=== PATIENT | female | born 1940 | race Caucasian/White ===

== ENCOUNTER 2023-01-24 11:50 | Inpatient (IN) | payer MEDICARE, OTHER ==
[~2023-01-24] VITALS: Ht 160 cm; Wt 71.3 kg
[2023-01-24] MEDS ORDERED: MORPHINE SULFATE INJ 2 MG/ML DISP.SYRIN IV ONE (12:00)
[2023-01-24] MEDS ORDERED: MORPHINE SULFATE INJ 2 MG/ML DISP.SYRIN ONE (12:20)
[2023-01-24] MEDS ORDERED: IPRA4AER INH (12:33)
[2023-01-24] MEDS ORDERED: MYRBETRIQ PO (12:33)
[2023-01-24] MEDS ORDERED: OMEP1CAP25 PO (12:33)
[2023-01-24] MEDS ORDERED: ERGO500093 PO (12:33)
[2023-01-24] MEDS ORDERED: AMLO-212 PO (12:33)
[2023-01-24] MEDS ORDERED: DOCU-141 PO (12:33)
[2023-01-24] MEDS ORDERED: IRBE300T19 PO (12:33)
[2023-01-24] MEDS ORDERED: MONT10TA22 PO (12:33)
[2023-01-24] MEDS ORDERED: FURO20TA4 PO (12:33)
[2023-01-24] MEDS ORDERED: ALBU18HF2 IH (12:33)
[2023-01-24] MEDS ORDERED: CELE-85 PO (12:33)
[2023-01-24] MEDS ORDERED: QUET25TA PO (12:33)
[2023-01-24] MEDS ORDERED: ATOR40TA PO (12:33)
[2023-01-24] MEDS ORDERED: ASPI-1420 PO (12:33)
[2023-01-24] MEDS ORDERED: ICOS1CAP PO (12:33)
[2023-01-24] MEDS ORDERED: DIVA-76 PO (12:33)
[2023-01-24 12:44] LABS: BASOPHILS % (AUTO) 0.6 % (0.0-2.0); EOSINOPHILS # (AUTO) 0.1 K/uL (0.0-0.7); EOSINOPHILS % (AUTO) 1.1 % (0.0-6.0); HEMATOCRIT 37 % (33-45); HEMOGLOBIN 12.1 g/dL (11.5-14.8); LYMPHOCYTES # (AUTO) 2.4 K/uL (0.8-4.8); LYMPHOCYTES % (AUTO) 34.9 % (20.0-44.0); MEAN CORPUSCULAR HEMOGLOBIN 31 PG (26.0-33.0); MEAN CORPUSCULAR HGB CONC 33 g/dl (31.0-36.0); MEAN CORPUSCULAR VOLUME 94 fL (82-100); MONOCYTES # (AUTO) 0.9 K/uL (0.1-1.30); MONOCYTES % (AUTO) 12.8 % (2.0-12.0); NEUTROPHILS # (AUTO) 3.5 K/uL (1.8-8.9); NEUTROPHILS % (AUTO) 50.6 % (43.0-81.0); PLATELET COUNT (AUTO) 159 K/uL (150-450); RED BLOOD CELL COUNT(AUTO) 3.91 MIL/uL (4.0-5.2); RED CELL DISTRIBUTION WIDTH 14.2 % (11.5-15.0); WHITE BLOOD COUNT (AUTO) 6.9 K/uL (4.3-11.0)
[2023-01-24 12:52] LABS: INR 1.05 (0.91-1.10); PARTIAL THROMBOPLASTIN TIME 24.9 SEC (24.3-34.3)
[2023-01-24 13:15] LABS: ALANINE AMINOTRANSFERASE 28 U/L (12-78); ALBUMIN 3.7 g/dL (3.4-5.0); ALKALINE PHOSPHATASE 49 U/L (46-116); ASPARTATE AMINOTRANSFERASE 25 U/L (15-37); BILIRUBIN,DIRECT 0.1 mg/dL (0.0-0.2); BILIRUBIN,TOTAL 0.4 mg/dL (0.2-1.0); CALCIUM, SERUM 9.7 mg/dL (8.5-10.1); CARBON DIOXIDE 28 mmol/L (21-32); CHLORIDE 104 mmol/L (98-107); CREATININE 1.1 mg/dL (0.6-1.3); GLUCOSE 110 mg/dL (74-106); POTASSIUM 4.4 mmol/L (3.5-5.1); SODIUM SERUM 140 mmol/L (136-145); UREA NITROGEN, BLOOD 19 mg/dL (7-18)
[2023-01-24] MEDS ORDERED: Medication Not On Formulary EA (Ipratropium/Albuterol Sulfate (Combivent Respimat 20-100 INH PRN (14:00)
[2023-01-24] MEDS ORDERED: ONDANSETRON HCL/PF 4 MG/2 ML VIAL IVP PRN (14:00)
[2023-01-24] MEDS ORDERED: ACETAMINOPHEN 325 MG TABLET PO PRN (14:00)
[2023-01-24] MEDS ORDERED: Z GUARD REMEDY 4 OZ OINT TP PRN (14:00)
[2023-01-24] MEDS ORDERED: MAGNESIUM HYDROXIDE 30 ML UDC PO PRN (14:00)
[2023-01-24] MEDS ORDERED: MAG HYDROX/AL HYDROX/SIMETH 30 ML UDC PO PRN (14:00)
[2023-01-24] MEDS ORDERED: IPRATROPIUM NEB FS 0.5 MG/2.5 ML AMPUL.NEB NEB PRN (14:30)
[2023-01-24] MEDS ORDERED: CELECOXIB 100 MG CAPSULE PO PRN (14:30)
[2023-01-24] MEDS ORDERED: ALBUTEROL FS 2.5 MG/3 ML VIAL.NEB NEB PRN (14:30)
[2023-01-24 15:53] LABS: THYROID STIMULATING HORMONE 2.248 uIU/mL (0.358-3.74)
[2023-01-24] MEDS: IV 1/2NS 1000 ML 1,000 ML IV PRN (16:44)
[2023-01-24] MEDS: MORPHINE SULFATE INJ 2 MG/ML DISP.SYRIN IV PRN ×2 (16:45→22:01)
[2023-01-24] MEDS ORDERED: FUROSEMIDE 20 MG TABLET PO SCH (17:00)
[2023-01-24] MEDS ORDERED: Medication Not On Formulary EA (Icosapent Ethyl (Vascepa) 2 GM) PO SCH (17:00)
[2023-01-24] MEDS: DOCUSATE SODIUM 100 MG CAPSULE PO SCH (17:15)
[2023-01-24] MEDS: QUETIAPINE FUMARATE 25 MG TABLET PO SCH (17:16)
[2023-01-24] MEDS: DIVALPROEX SODIUM 250 MG TABLET.DR PO SCH (17:16)
[2023-01-24 18:11] VITALS: BP 142/77; TEMP 98.3; O2SAT 99
[2023-01-24] MEDS: ATORVASTATIN 40 MG TABLET PO SCH (21:02)
[2023-01-25] VITALS (31 sets, daily range): BP systolic 79–125; BP diastolic 46–92; TEMP 98–98.8; O2SAT 86–100
[2023-01-25] MEDS: IV 1/2NS 1000 ML 1,000 ML IV PRN (05:09)
[2023-01-25 06:45] LABS: BASOPHILS % (AUTO) 0.4 % (0.0-2.0); EOSINOPHILS # (AUTO) 0.1 K/uL (0.0-0.7); EOSINOPHILS % (AUTO) 0.9 % (0.0-6.0); HEMATOCRIT 31 % (33-45); HEMOGLOBIN 10.3 g/dL (11.5-14.8); LYMPHOCYTES # (AUTO) 2.1 K/uL (0.8-4.8); LYMPHOCYTES % (AUTO) 29.4 % (20.0-44.0); MEAN CORPUSCULAR HEMOGLOBIN 31 PG (26.0-33.0); MEAN CORPUSCULAR HGB CONC 33 g/dl (31.0-36.0); MEAN CORPUSCULAR VOLUME 92 fL (82-100); MONOCYTES # (AUTO) 0.8 K/uL (0.1-1.30); MONOCYTES % (AUTO) 11.6 % (2.0-12.0); NEUTROPHILS # (AUTO) 4.2 K/uL (1.8-8.9); NEUTROPHILS % (AUTO) 57.7 % (43.0-81.0); PLATELET COUNT (AUTO) 139 K/uL (150-450); RED BLOOD CELL COUNT(AUTO) 3.34 MIL/uL (4.0-5.2); RED CELL DISTRIBUTION WIDTH 14.1 % (11.5-15.0); WHITE BLOOD COUNT (AUTO) 7.2 K/uL (4.3-11.0)
[2023-01-25 07:07] LABS: ALBUMIN 3.1 g/dL (3.4-5.0); BILIRUBIN,TOTAL 0.3 mg/dL (0.2-1.0); CALCIUM, SERUM 8.6 mg/dL (8.5-10.1); CREATININE 0.9 mg/dL (0.6-1.3); MAGNESIUM 1.8 mg/dL (1.8-2.4); PHOSPHORUS 3.7 mg/dL (2.5-4.9); POTASSIUM 3.9 mmol/L (3.5-5.1)
[2023-01-25] MEDS: DOCUSATE SODIUM 100 MG CAPSULE PO SCH ×2 (09:00→16:38)
[2023-01-25] MEDS: QUETIAPINE FUMARATE 25 MG TABLET PO SCH ×2 (09:00→16:39)
[2023-01-25] MEDS: AMLODIPINE BESYLATE 5 MG TABLET PO SCH (09:00)
[2023-01-25] MEDS: LOSARTAN POTASSIUM 50 MG TABLET PO SCH (09:00)
[2023-01-25] MEDS ORDERED: Medication Not On Formulary EA ([Myrbetriq] 25 MG) PO SCH (09:00)
[2023-01-25] MEDS: ASPIRIN EC 81 MG TABLET.DR PO SCH (09:00)
[2023-01-25] MEDS: MONTELUKAST SODIUM (10MG) 10 MG TABLET PO SCH (09:00)
[2023-01-25] MEDS: DIVALPROEX SODIUM 250 MG TABLET.DR PO SCH ×2 (09:00→16:39)
[2023-01-25] MEDS ORDERED: VANCOMYCIN 1 GM VIAL ONE (09:57)
[2023-01-25] MEDS ORDERED: BUPIVACAINE 0.5 % PF 150 MG/30 ML VIAL ONE (09:57)
[2023-01-25] MEDS: MORPHINE SULFATE INJ 2 MG/ML DISP.SYRIN IV PRN ×2 (10:04→21:22)
[2023-01-25] MEDS ORDERED: FENTANYL PF 250MCG/5ML AMPUL ONE (11:54)
[2023-01-25] MEDS ORDERED: FAMOTIDINE/PF INJ 20 MG/2 ML VIAL IV ONE (11:55)
[2023-01-25] MEDS ORDERED: ROCURONIUM BROMIDE 50 MG/5 ML ONE (11:55)
[2023-01-25] MEDS ORDERED: HYDROMORPHONE INJ 2 MG/ML DISP.SYRIN ONE (11:55)
[2023-01-25] MEDS ORDERED: IV D5/0.45 NACL W/20 MEQ KCL 1L IV SCH ×2 (14:30)
[2023-01-25] MEDS ORDERED: MORPHINE SULFATE INJ 2 MG/ML DISP.SYRIN IV PRN (14:30)
[2023-01-25 15:33] LABS: HEMOGLOBIN 8.9 g/dL (11.5-14.8)
[2023-01-25] MEDS ORDERED: AMIODARONE 150 MG in IV D5W 100 ML IV ONE (16:00)
[2023-01-25] MEDS ORDERED: IV NS 0.9% 500 ML IV ONE (16:00)
[2023-01-25] MEDS: PHENYLEPHRINE 50 MG in IV NS 0.9% 245 ML IV PRN (16:13)
[2023-01-25] MEDS: AMIODARONE 450 MG in IV D5W 241 ML IV PRN (16:49)
[2023-01-25] MEDS: methylPREDNISolone SOD SUCC 125 MG/2ML VIAL IV SCH ×2 (17:23→20:56)
[2023-01-25] MEDS: IPRATROPIUM NEB FS 0.5 MG/2.5 ML AMPUL.NEB NEB SCH ×2 (19:53→23:55)
[2023-01-25] MEDS: ANCEF 1 GM/50 ML D5W IV SCH ×2 (20:00)
[2023-01-25] MEDS: ATORVASTATIN 40 MG TABLET PO SCH (22:00)
[2023-01-26] VITALS (61 sets, daily range): BP systolic 84–149; BP diastolic 44–106; TEMP 97.8–99.5; O2SAT 92–100
[2023-01-26] MEDS: AMIODARONE 450 MG in IV D5W 241 ML IV PRN (00:14)
[2023-01-26] MEDS: MORPHINE SULFATE INJ 2 MG/ML DISP.SYRIN IV PRN (02:54)
[2023-01-26] MEDS: PHENYLEPHRINE 50 MG in IV NS 0.9% 245 ML IV PRN (03:02)
[2023-01-26] MEDS: IPRATROPIUM NEB FS 0.5 MG/2.5 ML AMPUL.NEB NEB SCH ×6 (03:43→23:25)
[2023-01-26] MEDS: ANCEF 1 GM/50 ML D5W IV SCH ×4 (04:10→12:29)
[2023-01-26] MEDS: methylPREDNISolone SOD SUCC 125 MG/2ML VIAL IV SCH ×2 (04:30→09:41)
[2023-01-26 04:35] LABS: BASOPHILS % (AUTO) 0.1 % (0.0-2.0); HEMATOCRIT 27 % (33-45); HEMOGLOBIN 9.1 g/dL (11.5-14.8); LYMPHOCYTES # (AUTO) 0.9 K/uL (0.8-4.8); LYMPHOCYTES % (AUTO) 11.6 % (20.0-44.0); MEAN CORPUSCULAR HEMOGLOBIN 32 PG (26.0-33.0); MEAN CORPUSCULAR HGB CONC 34 g/dl (31.0-36.0); MEAN CORPUSCULAR VOLUME 94 fL (82-100); MONOCYTES # (AUTO) 0.2 K/uL (0.1-1.30); MONOCYTES % (AUTO) 2.9 % (2.0-12.0); NEUTROPHILS # (AUTO) 6.9 K/uL (1.8-8.9); NEUTROPHILS % (AUTO) 85.4 % (43.0-81.0); PLATELET COUNT (AUTO) 139 K/uL (150-450); RED BLOOD CELL COUNT(AUTO) 2.89 MIL/uL (4.0-5.2); RED CELL DISTRIBUTION WIDTH 13.7 % (11.5-15.0)
[2023-01-26 05:09] LABS: ALANINE AMINOTRANSFERASE 24 U/L (12-78); ALBUMIN 3.1 g/dL (3.4-5.0); ALKALINE PHOSPHATASE 43 U/L (46-116); ASPARTATE AMINOTRANSFERASE 22 U/L (15-37); BILIRUBIN,TOTAL 0.2 mg/dL (0.2-1.0); CALCIUM, SERUM 8.1 mg/dL (8.5-10.1); CARBON DIOXIDE 24 mmol/L (21-32); CHLORIDE 104 mmol/L (98-107); CREATININE 1.2 mg/dL (0.6-1.3); GLUCOSE 196 mg/dL (74-106); MAGNESIUM 1.7 mg/dL (1.8-2.4); PHOSPHORUS 2.7 mg/dL (2.5-4.9); POTASSIUM 4.5 mmol/L (3.5-5.1); SODIUM SERUM 140 mmol/L (136-145); TOTAL PROTEIN, SERUM 7.1 g/dL (6.4-8.2); UREA NITROGEN, BLOOD 13 mg/dL (7-18)
[2023-01-26] MEDS ORDERED: IV NS 0.9% 250 ML IV PRN (08:00)
[2023-01-26 08:36] LABS: ABG BASE EXCESS -1.6 mmol/L; ABG OXYGEN SATURATION 94.1 % (92.0-98.5); ABG PH 7.319 (7.350-7.450); ABG PO2 74.6 mmHg (75.0-100.0); ABG TOTAL HEMOGLOBIN 9.3 G/dL (12.0-16.0); AaDO2 226.8 mmHg; COHb 0.3 % (0.5-1.5); O2Hb 93.8 % (94.0-97.0); SITE, ABG Right Radial; VENT MODE, BG SIMPLE MASK
[2023-01-26 08:36] LABS: ABG BASE EXCESS -4.9 mmol/L; ABG OXYGEN SATURATION 90.2 % (92.0-98.5); ABG PCO2 80.4 mmHg (35.0-45.0); ABG PH 7.117 (7.350-7.450); ABG PO2 74.3 mmHg (75.0-100.0); ABG TOTAL HEMOGLOBIN 10.2 G/dL (12.0-16.0); AaDO2 294.4 mmHg; COHb 0.3 % (0.5-1.5); MetHb 0.2 % (0.0-1.5); O2Hb 89.7 % (94.0-97.0); SITE, ABG Right Radial; VENT MODE, BG 7L SIMPLE MASK
[2023-01-26 08:36] LABS: ABG BASE EXCESS -5.4 mmol/L; ABG OXYGEN SATURATION 99.1 % (92.0-98.5); ABG PCO2 53.4 mmHg (35.0-45.0); ABG PH 7.236 (7.350-7.450); ABG PO2 247.8 mmHg (75.0-100.0); ABG TOTAL HEMOGLOBIN 10.1 G/dL (12.0-16.0); AaDO2 411.8 mmHg; COHb 0.3 % (0.5-1.5); MetHb 0.2 % (0.0-1.5); O2Hb 98.6 % (94.0-97.0); SITE, ABG Right Radial
[2023-01-26] MEDS: AMLODIPINE BESYLATE 5 MG TABLET PO SCH (09:00)
[2023-01-26] MEDS: QUETIAPINE FUMARATE 25 MG TABLET PO SCH ×2 (09:00→16:11)
[2023-01-26] MEDS: DIVALPROEX SODIUM 250 MG TABLET.DR PO SCH ×2 (09:00→16:11)
[2023-01-26] MEDS: DOCUSATE SODIUM 100 MG CAPSULE PO SCH ×2 (09:00→16:10)
[2023-01-26] MEDS: LOSARTAN POTASSIUM 50 MG TABLET PO SCH (09:00)
[2023-01-26] MEDS: MONTELUKAST SODIUM (10MG) 10 MG TABLET PO SCH (09:41)
[2023-01-26] MEDS: ASPIRIN EC 81 MG TABLET.DR PO SCH (09:54)
[2023-01-26] MEDS: Magnesium 1GM/D5W 100ML PREMIX 100 ML IV SCH ×2 (10:33→11:48)
[2023-01-26] MEDS: ATORVASTATIN 40 MG TABLET PO SCH (21:22)
[2023-01-27] VITALS (23 sets, daily range): BP systolic 93–121; BP diastolic 51–71; TEMP 98–99.2; O2SAT 92–98
[2023-01-27] MEDS: IPRATROPIUM NEB FS 0.5 MG/2.5 ML AMPUL.NEB NEB SCH ×6 (03:12→23:48)
[2023-01-27 04:47] LABS: HEMATOCRIT 21 % (33-45); HEMOGLOBIN 7.1 g/dL (11.5-14.8); LYMPHOCYTES # (AUTO) 1.5 K/uL (0.8-4.8); LYMPHOCYTES % (AUTO) 18.5 % (20.0-44.0); MEAN CORPUSCULAR HEMOGLOBIN 31 PG (26.0-33.0); MEAN CORPUSCULAR HGB CONC 33 g/dl (31.0-36.0); MEAN CORPUSCULAR VOLUME 93 fL (82-100); MONOCYTES # (AUTO) 0.9 K/uL (0.1-1.30); MONOCYTES % (AUTO) 10.8 % (2.0-12.0); NEUTROPHILS # (AUTO) 5.6 K/uL (1.8-8.9); NEUTROPHILS % (AUTO) 70.7 % (43.0-81.0); PLATELET COUNT (AUTO) 118 K/uL (150-450); RED BLOOD CELL COUNT(AUTO) 2.28 MIL/uL (4.0-5.2); WHITE BLOOD COUNT (AUTO) 7.9 K/uL (4.3-11.0)
[2023-01-27 05:03] LABS: CALCIUM, SERUM 8.5 mg/dL (8.5-10.1); CARBON DIOXIDE 30 mmol/L (21-32); CHLORIDE 107 mmol/L (98-107); CREATININE 0.9 mg/dL (0.6-1.3); GLUCOSE 152 mg/dL (74-106); MAGNESIUM 2.6 mg/dL (1.8-2.4); PHOSPHORUS 2.1 mg/dL (2.5-4.9); POTASSIUM 4.5 mmol/L (3.5-5.1); SODIUM SERUM 142 mmol/L (136-145); UREA NITROGEN, BLOOD 18 mg/dL (7-18)
[2023-01-27] MEDS: HYDROCODONE/APAP 10/325MG TABLET PO PRN (07:44)
[2023-01-27] MEDS: AMLODIPINE BESYLATE 5 MG TABLET PO SCH (09:00)
[2023-01-27] MEDS: LOSARTAN POTASSIUM 50 MG TABLET PO SCH (09:00)
[2023-01-27] MEDS: ASPIRIN EC 81 MG TABLET.DR PO SCH (09:00)
[2023-01-27 09:07] LABS: IRON, SERUM 44 ug/dl (50-175); TOTAL IRON BINDING CAPACITY 238 ug/dl (250-450)
[2023-01-27 09:21] LABS: FERRITIN 90 ng/mL (8-388)
[2023-01-27] MEDS: methylPREDNISolone SOD SUCC 125 MG/2ML VIAL IV SCH (09:25)
[2023-01-27] MEDS: MONTELUKAST SODIUM (10MG) 10 MG TABLET PO SCH (09:26)
[2023-01-27] MEDS: QUETIAPINE FUMARATE 25 MG TABLET PO SCH ×2 (09:26→16:56)
[2023-01-27] MEDS: DOCUSATE SODIUM 100 MG CAPSULE PO SCH ×2 (09:26→17:07)
[2023-01-27] MEDS: DIVALPROEX SODIUM 250 MG TABLET.DR PO SCH ×2 (09:26→16:56)
[2023-01-27] MEDS ORDERED: K PHOS NEUTRAL 250 MG TABLET PO ONE (15:30)
[2023-01-27] MEDS: ATORVASTATIN 40 MG TABLET PO SCH (21:15)
[2023-01-28] VITALS (14 sets, daily range): BP systolic 106–147; BP diastolic 61–77; TEMP 97.8–100.1; O2SAT 91–99
[2023-01-28] MEDS: IPRATROPIUM NEB FS 0.5 MG/2.5 ML AMPUL.NEB NEB SCH ×5 (04:01→19:47)
[2023-01-28 06:02] LABS: EOSINOPHILS % (AUTO) 0.1 % (0.0-6.0); HEMATOCRIT 21 % (33-45); HEMOGLOBIN 7.1 g/dL (11.5-14.8); LYMPHOCYTES # (AUTO) 2.9 K/uL (0.8-4.8); LYMPHOCYTES % (AUTO) 32.9 % (20.0-44.0); MEAN CORPUSCULAR HEMOGLOBIN 31 PG (26.0-33.0); MEAN CORPUSCULAR HGB CONC 34 g/dl (31.0-36.0); MEAN CORPUSCULAR VOLUME 93 fL (82-100); MONOCYTES # (AUTO) 0.8 K/uL (0.1-1.30); MONOCYTES % (AUTO) 9.5 % (2.0-12.0); NEUTROPHILS % (AUTO) 57.5 % (43.0-81.0); PLATELET COUNT (AUTO) 156 K/uL (150-450); RED BLOOD CELL COUNT(AUTO) 2.27 MIL/uL (4.0-5.2); RED CELL DISTRIBUTION WIDTH 14.2 % (11.5-15.0); WHITE BLOOD COUNT (AUTO) 8.8 K/uL (4.3-11.0)
[2023-01-28 06:20] LABS: BILIRUBIN,TOTAL 0.3 mg/dL (0.2-1.0); CALCIUM, SERUM 8.6 mg/dL (8.5-10.1); CREATININE 0.9 mg/dL (0.6-1.3); MAGNESIUM 2.4 mg/dL (1.8-2.4); PHOSPHORUS 2.8 mg/dL (2.5-4.9); POTASSIUM 4.4 mmol/L (3.5-5.1); TOTAL PROTEIN, SERUM 6.2 g/dL (6.4-8.2)
[2023-01-28 06:39] LABS: ALBUMIN 2.5 g/dL (3.4-5.0)
[2023-01-28] MEDS: AMLODIPINE BESYLATE 5 MG TABLET PO SCH (08:18)
[2023-01-28] MEDS: QUETIAPINE FUMARATE 25 MG TABLET PO SCH ×2 (08:18→16:20)
[2023-01-28] MEDS: DOCUSATE SODIUM 100 MG CAPSULE PO SCH ×2 (08:18→16:20)
[2023-01-28] MEDS: DIVALPROEX SODIUM 250 MG TABLET.DR PO SCH ×2 (08:18→16:20)
[2023-01-28] MEDS: LOSARTAN POTASSIUM 50 MG TABLET PO SCH (08:19)
[2023-01-28] MEDS: MONTELUKAST SODIUM (10MG) 10 MG TABLET PO SCH (08:19)
[2023-01-28] MEDS: ASPIRIN EC 81 MG TABLET.DR PO SCH (08:19)
[2023-01-28] MEDS ORDERED: ERGOCALCIFEROL (VITAMIN D 2) 50,000 UNIT CAPSULE PO SCH (09:00)
[2023-01-28] MEDS: HYDROCODONE/APAP 10/325MG TABLET PO PRN ×2 (10:42→19:56)
== END 2023-01-28 20:11 | DRG 480 ==
LOC: ER 11:57 → MED 14:10 → ICU 01-25 15:02 → TELE 01-27 11:23
PROVIDERS: ADMIT Internal Medicine
PROC: 0QS606Z Reposition Right Upper Femur with Intramedullary Internal Fixation Device, Open Approach (ICD-10-PCS; principal; 2023-01-25)
PROC: 5A09357 Assistance with Respiratory Ventilation, Less than 24 Consecutive Hours, Continuous Positive Airway Pressure (ICD-10-PCS; 2023-01-25)
PROC: 02HV33Z Insertion of Infusion Device into Superior Vena Cava, Percutaneous Approach (ICD-10-PCS; 2023-01-25)
PROC: B548ZZA Ultrasonography of Superior Vena Cava, Guidance (ICD-10-PCS; 2023-01-25)
DX: S72.141A Displaced intertrochanteric fracture of right femur, initial encounter for closed fracture (principal); J96.01 Acute respiratory failure with hypoxia; J96.02 Acute respiratory failure with hypercapnia; R57.9 Shock, unspecified; D68.69 Other thrombophilia; W01.0XXA Fall on same level from slipping, tripping and stumbling without subsequent striking against object, initial encounter; S42.032A Displaced fracture of lateral end of left clavicle, initial encounter for closed fracture; E78.5 Hyperlipidemia, unspecified; I10 Essential (primary) hypertension; I25.10 Atherosclerotic heart disease of native coronary artery without angina pectoris; S72.21XA Displaced subtrochanteric fracture of right femur, initial encounter for closed fracture; J45.909 Unspecified asthma, uncomplicated; D64.9 Anemia, unspecified; I48.91 Unspecified atrial fibrillation; Y93.9 Activity, unspecified; Y92.009 Unspecified place in unspecified non-institutional (private) residence as the place of occurrence of the external cause
CPT/HCPCS: 36415; 36569; 36600; 71045-TC; 73501; 73502; 76536-TC; 80048-TC; 80053-TC; 80061-TC; 80076-TC; 82728-TC; 83540-TC; 83735-TC; 84100-TC; 84439-TC; 84443-TC; 84484-TC; 85025-TC; 85027-TC; 85730-TC; 86850-TC; 92526; 92611-TC; 93307-TC; 94799-TC; 97112-TC; 97530-TC; A4223; A6209; C1713; G0378; J0282; J0690; J1170; J2270; J2370; J2405; J2704; J2765; J2930; J3010; J3370; J3475; J3480; J3490; J7030; J7040; J7050; J7060